=== PATIENT | female | born 1995 | race Caucasian/White ===

== ENCOUNTER 2018-04-27 18:04 | Emergency (ER) | payer BC ==
[~2018-04-27] VITALS: Ht 180.3 cm; Wt 84.8 kg
[~2018-04-27 18:04] MED LIST: ACETAMINOPHEN-1 EAC1 PO; BUSPIRONE HCL10 MG PO; CIPRO500 MG PO; IBUPROFEN 800800 MG PO; ONDANSETRON HCL4 M2 PO; ZOFRAN4 MG PO
[2018-04-27] MEDS ORDERED: CELEXA10 MG PO (18:24)
[2018-04-27] MEDS ORDERED: BACTRIM DS TAB1 EACH PO (18:25)
[2018-04-27] MEDS ORDERED: BIOTIN1 MG PO (18:25)
[2018-04-27] MEDS ORDERED: XANAX1 MG PO (18:25)
[2018-04-27 18:38] LABS: URINE BILIRUBIN NEGATIVE (Negative); URINE BLOOD 3+ (Negative); URINE CLARITY CLEAR; URINE COLOR YELLOW; URINE GLUCOSE-RANDOM NEGATIVE (Negative); URINE KETONES NEGATIVE (Negative); URINE LEUKOCYTES-REFLEX NEGATIVE (Negative); URINE NITRITE-REFLEX NEGATIVE (Negative); URINE PROTEIN TRACE (Negative); URINE SPECIFIC GRAVITY >= 1.030 (1.005-1.030); URINE UROBILINOGEN 0.2 E.U./dl (0.2-1.0)
[2018-04-27 18:52] LABS: SQUAMOUS >10 Many /LPF (0-3)
[2018-04-27 18:53] LABS: CRYSTALS None Seen /LPF (None Seen); HYALINE CASTS 4-10 Moderate /LPF (None Seen); MUCUS 0-3 Light strn/LPF (None Seen); URINE RBC 0-2 Rare /HPF (0-2); URINE WBC-REFLEX 0-5 Rare /HPF (0-5)
[2018-04-27 18:57] LABS: ABSOLUTE EOSINOPHILS 0.4 thou/uL (0.0-0.7); ABSOLUTE LYMPHOCYTES 1.6 thou/uL (0.8-5.3); ABSOLUTE MONOCYTES 0.3 thou/uL (0.0-1.2); BASOPHILS 0.5 %; EOSINOPHILS 5.9 %; HEMATOCRIT 42.7 % (37.0-47.0); HEMOGLOBIN 14.6 gm/dL (12.0-15.0); LYMPHOCYTES 25.2 %; MCH 30.8 pg (26.0-34.0); MCHC 34.2 g/dL (28.0-37.0); MCV 89.8 fL (80.0-100.0); MONOCYTES 4.9 %; MPV 9.2 fl. (7.2-11.1); NUCLEATED RBCS 0 /100WBC; PLATELET COUNT* 237 thou/uL (150-400); POLYS 63.5 %; RBC 4.76 mil/uL (4.20-5.00); RDW-CV 13.5 % (10.5-14.5); WBC 6.3 thou/uL (4.0-11.0)
[2018-04-27 19:06] LABS: CALCIUM 9.1 mg/dL (8.5-10.1); CREATININE 0.8 mg/dL (0.6-1.3); POTASSIUM 3.7 mmol/L (3.5-5.1)
[2018-04-27 19:11] LABS: ALBUMIN 4.4 g/dL (3.4-5.0); TOTAL BILIRUBIN 0.5 mg/dL (<0.1-1.0); TOTAL PROTEIN 7.6 g/dL (6.4-8.2)
[2018-04-27] MEDS ORDERED: PYRIDIUM200 MG PO (20:20)
[2018-04-27 21:09] VITALS: BP 118/66
== END 2018-04-27 21:10 | disposition home or self-care (01) ==
LOC: M.ERS 18:04
PROVIDERS: Nurse Practitioner Family
DX: N39.0 Urinary tract infection, site not specified (principal); F32.9 Major depressive disorder, single episode, unspecified

== ENCOUNTER 2019-02-17 09:41 | Emergency (ER) | payer OTHER, BC ==
[~2019-02-17] VITALS: Ht 180.3 cm; Wt 88.5 kg
[~2019-02-17 09:41] MED LIST changes: +BACTRIM DS TAB1 EACH PO; +BIOTIN1 MG PO; +CELEXA10 MG PO; +PYRIDIUM200 MG PO; +XANAX1 MG PO
[2019-02-17] MEDS ORDERED: KEFLEX500 M1 PO (10:15)
[2019-02-17 10:20] VITALS: BP 126/78
== END 2019-02-17 10:20 | disposition home or self-care (01) ==
LOC: M.ERS 09:41
DX: S61.210A Laceration without foreign body of right index finger without damage to nail, initial encounter (principal); F32.9 Major depressive disorder, single episode, unspecified; F41.0 Panic disorder [episodic paroxysmal anxiety]; W26.8XXA Contact with other sharp object(s), not elsewhere classified, initial encounter; Y93.89 Activity, other specified; Y92.89 Other specified places as the place of occurrence of the external cause; Y99.8 Other external cause status